=== PATIENT | male | born 1985 | race Caucasian/White ===

== ENCOUNTER 2025-05-17 00:34 | Emergency (ER) | payer SELFPAY ==
[~2025-05-17] VITALS: Ht 177.8 cm; Wt 105.0 kg
[2025-05-17 00:48] VITALS: BP 111/75; PULSE 110; RESP 14; TEMP 36.7; O2SAT 96
[2025-05-17] MEDS ORDERED: TETANUS, DIPHTHERIA, PERTUSSIS VAC/PF 0.5ML (>10YR OLD) IM ONE (02:00)
[2025-05-17] MEDS ORDERED: LIDOCAINE HCL 1% 20ML VIAL INFIL ONE (02:00)
== END 2025-05-17 02:00 | disposition left against medical advice (07) ==
LOC: ER 01:01
DX: S01.81XA Laceration without foreign body of other part of head, initial encounter (principal); Z53.21 Procedure and treatment not carried out due to patient leaving prior to being seen by health care provider; X58.XXXA Exposure to other specified factors, initial encounter; Y93.89 Activity, other specified; Y92.89 Other specified places as the place of occurrence of the external cause; Y99.8 Other external cause status